=== PATIENT | male | born 1950 | race Caucasian/White ===

== ENCOUNTER 2016-07-03 16:20 | Emergency (ER) | payer OTHER ==
[2016-07-03 16:30] VITALS: TEMP 97.9
[2016-07-03] MEDS ORDERED: NS 1,000 ML IV ONE (16:49)
[2016-07-03] MEDS ORDERED: ONDANSETRON 4 MG/2 ML VIAL ONE (16:49)
[2016-07-03] MEDS ORDERED: ONDANSETRON 4 MG/2 ML VIAL IVP ONE (16:49)
--- NOTE | 2016-07-03 17:00 | EDPHY ---
General Narrative: CHIEF COMPLAINT: Abdominal pain, back pain HISTORY OF PRESENT ILLNESS: Three days history of left lower back pain and abdominal pain. This was fairly sudden onset. Constant duration. Mild to moderate 1st now moderate to severe. No position of comfort. He does have an extensive tobacco history with multilevel fractures requiring surgical intervention last August and [facility]. Since then he has had some paresthesia of the saddle and lower extremities that time. This is unchanged at this time. He also has no new trauma. He has no midline tenderness of the back. It does not radiate to the legs. No saddle anesthesia. No incontinence of bowel or bladder. he has abdominal pain feels like he is constipated bloated. Small bowel movement this morning. He does feel like he is very distended hour. No fever. No chest pain or shortness of breath. No urinary complaints. No other associated complaints or modifying factors. He does not take any opiates for his pain. He has been taking Tylenol over the past few days with minimal improvement. PREVIOUS ABDOMINAL SURGERIES/DIAGNOSES: None REVIEW OF SYSTEMS: Ten systems reviewed and are negative unless otherwise noted in the HPI EXAMINATION: General Appearance: Alert, no distress Head: normocephalic, atraumatic Eyes: Pupils equal and round, no conjunctival pallor or injection ENT, Mouth: Mucous membranes moist. Uvula midline. No erythema or edema. Neck: Normal inspection, supple, non-tender Respiratory: Lungs are clear to auscultation . No wheezing, rhonchi or crackles. Cardiovascular: Regular rate and rhythm . No murmur. Pulses intact distally. Gastrointestinal: Abdomen is soft . Tender in all quadrants, left lower quadrant more so than the others. Bowel sounds are present but diminished in all 4 quadrants. There is mild tympany. No rigidity. Mild guarding in all quadrants. No CVA Tenderness Back: tenderness to the soft tissue of the lumbar region on the left. There is no midline tenderness at any level. There are well-healed thoracolumbar surgical incisions. There is no crepitus, step-off or deformity. Range of motion is limited due to pain. Neurological: A&O, nonfocal, normal gait . Strength is symmetric in all limbs. Patellar reflexes are symmetric. Sensory intact. Skin: Warm and dry, no rash Extremities: Nontender, no pedal edema Psychiatric: Mood and affect normal DIFFERENTIAL DIAGNOSES: Including but not limited to diverticulitis, small-bowel obstruction, colitis, enteritis, acute low back pain, chronic low back pain MDM: 4:50 p.m. abdominal and back pain with significant tenderness to palpation on the abdomen. Bowel sounds are present but diminished in all quadrants. Left lower quadrant is by far the more tender of the regions. I have ordered CT scan of the abdomen pelvis to visualize both areas. He has no midline tenderness of the back. No symptoms or history that would suggest cauda equina or acute cord compression. 6:38 p.m. notified by radiologist Dr. Patterson of the CT scan findings. No obstruction. he does note some small areas of fluid-filled small intestine. I have re- evaluated the patient. I have informed him of the findings and of his laboratory findings. There is a mild leukocytosis but no other focal findings. I have re-examined the patient. He is feeling somewhat better but not resolved. I recommended and offered admission to the hospital for pain control and further workup for this possible enteritis. He has declined. He would like to be discharged home. I do feel he is stable for discharge home but that he would need to return to the emergency department tomorrow for re-evaluation if he does not improved. He would also need to return should symptoms worsen. We discussed this in detail and he and his spouse are comfortable with assuming these risks being discharged home. Was discharged home with pain medication and strict return to ER precautions. Additionally if he cannot see his primary care physician tomorrow he is to return here. ED Precautions: Worsening pain. Fever. Bloody stools. Bloody emesis. Constipation or diarrhea. SUPERVISION: This patient was independently evaluated without the aide of supervising physician. - History Smoking Status: Never smoked - Objective Vital Signs: Initial Vital Signs Temperature (C) 97.9 F 07/03/16 16:26 Heart Rate 84 07/03/16 16:26 Respiratory Rate 20 07/03/16 16:26 Blood Pressure 134/88 H 07/03/16 16:26 O2 Sat (%) 97 07/03/16 16:26 O2 Delivery Mode Room Air Allergies/Adverse Reactions: No Known Allergies Allergy (Verified 07/07/12 15:01) Home Medications: Medication Instructions Recorded Simvastatin 10 mg PO 07/07/12 Ondansetron Odt [Zofran Odt 4 mg 4 mg PO Q6 PRN #12 tab 07/03/16 (*)] oxyCODONE HCL/ACETAMINOPHEN 1 each PO Q4-6PRN PRN #15 tablet 07/03/16 [Percocet 5-325 mg Tablet] Laboratory Results: Laboratory Results 07/03/16 17:00 07/03/16 07/03/16 07/03/16 17:28 17:09 17:00 WBC RBC Hgb POC Hgb 11.9 gm/dL L gm/dL (14.5-17.3) Hct POC Hct 35 % L % (42.8-50.6) MCV MCH MCHC RDW Plt Count MPV Neut % (Auto) Lymph % (Auto) [place] % (Auto) Eos % (Auto) Baso % (Auto) Nucleat RBC Rel Count Absolute Neuts (auto) Absolute Lymphs (auto) Absolute Monos (auto) Absolute Eos (auto) Absolute Basos (auto) Absolute Nucleated RBC Immature Gran % Immature Gran # PT Pending INR Pending APTT Pending POC Sodium 141 mEq/L mEq/L (134-144) POC Potassium 3.9 mEq/L mEq/L (3.3-5.0) POC Chloride 108 mEq/L mEq/L (96-108) POC BUN 22 mg/dL mg/dL (7-23) POC Creatinine 0.9 mg/dL mg/dL (0.8-1.5) POC Glucose 94 mg/dL mg/dL (70-100) Total Bilirubin 0.9 mg/dL mg/dL (0.1-1.4) Conjugated Bilirubin 0.4 mg/dL mg/dL (0.0-0.5) Unconjugated Bilirubin 0.5 mg/dL mg/dL (0.0-1.1) AST 22 IU/L IU/L (17-59) ALT 30 IU/L IU/L (21-72) Alkaline Phosphatase 94 IU/L IU/L (38-126) Total Protein 8.3 g/dL H g/dL (6.3-8.2) Albumin 4.7 g/dL g/dL (3.5-5.0) Lipase 83.0 IU/L IU/L (23-300) 07/03/16 17:00 WBC 10.31 10^3/uL H 10^3/uL (3.80-9.50) RBC 4.61 10^6/uL 10^6/uL (4.40-6.38) Hgb 13.3 g/dL L g/dL (13.7-17.5) POC Hgb Hct 39.9 % L % (40.0-51.0) POC Hct MCV 86.6 fL fL (81.5-99.8) MCH 28.9 pg pg (27.9-34.1) MCHC 33.3 g/dL g/dL (32.4-36.7) RDW 14.0 % % (11.5-15.2) Plt Count 357 10^3/uL 10^3/uL (150-400) MPV 9.3 fL fL (8.7-11.7) Neut % (Auto) 74.3 % H % (39.3-74.2) Lymph % (Auto) 17.8 % % (15.0-45.0) [place] % (Auto) 6.3 % % (4.5-13.0) Eos % (Auto) 0.7 % % (0.6-7.6) Baso % (Auto) 0.4 % % (0.3-1.7) Nucleat RBC Rel Count 0.0 % % (0.0-0.2) Absolute Neuts (auto) 7.66 10^3/uL H 10^3/uL (1.70-6.50) Absolute Lymphs (auto) 1.84 10^3/uL 10^3/uL (1.00-3.00) Absolute Monos (auto) 0.65 10^3/uL 10^3/uL (0.30-0.80) Absolute Eos (auto) 0.07 10^3/uL 10^3/uL (0.03-0.40) Absolute Basos (auto) 0.04 10^3/uL 10^3/uL (0.02-0.10) Absolute Nucleated RBC 0.00 10^3/uL 10^3/uL (0-0.01) Immature Gran % 0.5 % % (0.0-1.1) Immature Gran # 0.05 10^3/uL 10^3/uL (0.00-0.10) PT INR APTT POC Sodium POC Potassium POC Chloride POC BUN POC Creatinine POC Glucose Total Bilirubin Conjugated Bilirubin Unconjugated Bilirubin AST ALT Alkaline Phosphatase Total Protein Albumin Lipase Medications Given: Discontinued Medications Sodium Chloride (Ns) 1,000 mls @ 0 mls/hr IV ONCE ONE PRN Reason: Wide Open Stop: 07/03/16 16:50 Last Admin: 07/03/16 17:00 Dose: 1,000 mls Morphine Sulfate (Morphine) 6 mg IVP EDNOW ONE Stop: 07/03/16 16:50 Last Admin: 07/03/16 17:00 Dose: 6 mg Ondansetron HCl (Zofran) 4 mg IVP EDNOW ONE Stop: 07/03/16 16:50 Last Admin: 07/03/16 17:00 Dose: 4 mg Point of Care Test Results: 07/03/16 17:28 POC Sodium 141 POC Potassium 3.9 POC Chloride 108 POC BUN 22 POC Creatinine 0.9 POC Glucose 94 Departure - Departure Disposition: Home, Routine, Self-Care Clinical Impression: Enteritis Abdominal pain Qualifiers: Abdominal location: left lower quadrant Qualified Code(s): R10.32 - Left lower quadrant pain Lumbar back pain Qualifiers: Chronicity: acute Back pain laterality: left Sciatica presence: without sciatica Qualified Code(s): M54.5 - Low back pain Condition: Good Instructions: Acute Abdominal Pain (ED), Acute Low Back Pain (ED) Additional Instructions: Pain medications as discussed. Return to the ER tomorrow if no improvement. Return to ER if you change your mind and would like to be admitted in the interim. Return immediately should her pain worsen, you have any vomiting or fever. Referrals: NONE *PRIMARY CARE P,. [Primary Care Provider] - As per Instructions Kenia Colbert MD [Medical Doctor] - As per Instructions Prescriptions: Ondansetron Odt [Zofran Odt 4 mg (*)] 4 mg PO Q6 PRN #12 tab PRN Reason: Nausea/Vomiting, Use 1st oxyCODONE HCL/ACETAMINOPHEN [Percocet 5-325 mg Tablet] 1 each PO Q4-6PRN PRN # 15 tablet PRN Reason: Pain, Breakthrough
[2016-07-03 17:15] LABS: % IMMATURE GRANULYOCYTES 0.5 % (0.0-1.1); ABSOLUTE IMMATURE GRANULOCYTES 0.05 10^3/uL (0.00-0.10); ADD DIFF? NO; ADD MORPH? NO; ADD SCAN? NO; ATYPICAL LYMPHOCYTE FLAG 10 (0-99); FRAGMENT RBC FLAG 0 (0-99); HEMATOCRIT 39.9 % (40.0-51.0); HEMOGLOBIN 13.3 g/dL (13.7-17.5); LEFT SHIFT FLG 0 (0-99); LIPEMIA HEMOLYSIS FLAG 80 (0-99); MEAN CELL HEMOGLOBIN 28.9 pg (27.9-34.1); MEAN CELL HEMOGLOBIN CONCENTR. 33.3 g/dL (32.4-36.7); MEAN CELL VOLUME 86.6 fL (81.5-99.8); MEAN PLATELET VOLUME 9.3 fL (8.7-11.7); PLATELET CLUMPS FLAG 0 (0-99); PLATELET COUNT 357 10^3/uL (150-400); RED BLOOD CELL COUNT 4.61 10^6/uL (4.40-6.38)
[2016-07-03 17:23] LABS: ALBUMIN 4.7 g/dL (3.5-5.0); BILIRUBIN,TOTAL 0.9 mg/dL (0.1-1.4); BILIRUBIN-CONJUGATED 0.4 mg/dL (0.0-0.5); BILIRUBIN-UNCONJUGATED 0.5 mg/dL (0.0-1.1); TOTAL PROTEIN 8.3 g/dL (6.3-8.2)
[2016-07-03 18:36] LABS: INR 0.98 (0.83-1.16); PROTIME(PATIENT) 12.9 SEC (12.0-15.0)
[2016-07-03 18:37] LABS: APTT 30.3 SEC (23.0-38.0)
[2016-07-03] MEDS ORDERED: OXYCODONE/APAP 5/325 TAB PO ONE (18:44)
[2016-07-03] MEDS ORDERED: OXYCODONE/APAP 5/325 TAB ONE (18:44)
[2016-07-03 18:55] VITALS: BP 135/84; PULSE 85; RESP 18; O2SAT 98
== END 2016-07-03 19:09 | disposition home or self-care (01) ==
DX: K52.9 Noninfective gastroenteritis and colitis, unspecified (principal); M54.5 Low back pain
CPT/HCPCS: 82947-QW; 96374; J2405

== ENCOUNTER 2016-08-24 11:04 | Emergency (ER) | payer OTHER ==
--- NOTE | 2016-08-24 11:35 | EDPHY ---
H & P Time Seen by Provider: 08/24/16 11:18 HPI/ROS: CHIEF COMPLAINT: Bilateral flank pain HISTORY OF PRESENT ILLNESS: This is a 65-year-old male presenting to the emergency department complaining of bilateral flank pain onset past few days. Patient also reports some urinary frequency but no dysuria. Patient states he does have a history of back surgery August of 2015 surgery was at [facility] for broken back thoracic and lumbar area. Patient denies any injury or new trauma. REVIEW OF SYSTEMS: Constitutional: No fever. chills. Eyes: No discharge. ENT: No sore throat. Cardiovascular: No chest pain, no palpitations. Respiratory: No cough, no shortness of breath. Gastrointestinal: No abdominal pain, no vomiting. Genitourinary: No hematuria. Urinary frequency Musculoskeletal: Bilateral flank pain. Chronic back pain due to surgery in August of 2015 Skin: No rashes. Neurological: No headache. Smoking Status: Never smoked Physical Exam: General Appearance: Alert, no distress. Eyes: Pupils equal and round no pallor or injection. ENT, Mouth: Mucous membranes moist. Respiratory: There are no retractions, lungs are clear to auscultation. Cardiovascular: Regular rate and rhythm. Gastrointestinal: Abdomen is soft and nontender, no masses, bowel sounds normal. Neurological: No focal deficits. Ambulatory with steady gait Skin: Warm and dry, no rashes. Musculoskeletal: Neck is supple nontender. Bilateral CVA tenderness on palpation. T-L-S vertebral spine nontender on palpation full range of motion Extremities: symmetrical, full range of motion. Psychiatric: Patient is oriented X 3, there is no agitation. Constitutional: Initial Vital Signs Temperature (C) 36.4 C 08/24/16 11:09 Heart Rate 84 08/24/16 11:09 Respiratory Rate 18 08/24/16 11:09 Blood Pressure 135/83 H 08/24/16 11:09 O2 Sat (%) 98 08/24/16 11:09 O2 Delivery Mode Room Air Allergies/Adverse Reactions: No Known Allergies Allergy (Verified 08/24/16 11:08) Home Medications: Medication Instructions Recorded Simvastatin 10 mg PO 07/07/12 Cyclobenzaprine [Flexeril 10 MG 10 mg PO BID PRN #20 tab 08/24/16 (*)] Htn Med 08/24/16 Medical Decision Making - Diagnostics Imaging Results: Imaging Impressions Abdomen/Pelvis Ultrasound 08/24/16 11:35 Impression: 1. No hydronephrosis. 2. Trace postvoid residual. Findings discussed with Abigail Dodd NP on 08/24/2016 at 1224 hours. ED Course/Re-evaluation: Discussed the plan of care: UA, CBC, BMP, ultrasound of kidneys 1220: With Dr. Dave ultrasound negative for any acute findings 1230: Discussed all results with patient. Discussed discharge instructions. Discharge home---> stable Differential Diagnosis: Other differential diagnosis considered but not limited to renal stone, hydronephrosis and UTI - Data Points Laboratory Results: Laboratory Results 08/24/16 11:35 08/24/16 11:35 08/24/16 08/24/16 11:35 11:35 WBC 9.01 10^3/uL 10^3/uL (3.80-9.50) RBC 4.42 10^6/uL 10^6/uL (4.40-6.38) Hgb 12.9 g/dL L g/dL (13.7-17.5) Hct 38.9 % L % (40.0-51.0) MCV 88.0 fL fL (81.5-99.8) MCH 29.2 pg pg (27.9-34.1) MCHC 33.2 g/dL g/dL (32.4-36.7) RDW 12.9 % % (11.5-15.2) Plt Count 330 10^3/uL 10^3/uL (150-400) MPV 9.0 fL fL (8.7-11.7) Neut % (Auto) 65.8 % % (39.3-74.2) Lymph % (Auto) 22.0 % % (15.0-45.0) [place] % (Auto) 8.2 % % (4.5-13.0) Eos % (Auto) 3.2 % % (0.6-7.6) Baso % (Auto) 0.6 % % (0.3-1.7) Nucleat RBC Rel Count 0.0 % % (0.0-0.2) Absolute Neuts (auto) 5.93 10^3/uL 10^3/uL (1.70-6.50) Absolute Lymphs (auto) 1.98 10^3/uL 10^3/uL (1.00-3.00) Absolute Monos (auto) 0.74 10^3/uL 10^3/uL (0.30-0.80) Absolute Eos (auto) 0.29 10^3/uL 10^3/uL (0.03-0.40) Absolute Basos (auto) 0.05 10^3/uL 10^3/uL (0.02-0.10) Absolute Nucleated RBC 0.00 10^3/uL 10^3/uL (0-0.01) Immature Gran % 0.2 % % (0.0-1.1) Immature Gran # 0.02 10^3/uL 10^3/uL (0.00-0.10) Sodium 141 mEq/L mEq/L (134-144) Potassium 4.4 mEq/L mEq/L (3.5-5.2) Chloride 104 mEq/L mEq/L (97-110) Carbon Dioxide 24 mEq/l mEq/l (22-31) Anion Gap 13 mEq/L mEq/L (8-16) BUN 21 mg/dL mg/dL (7-23) Creatinine 1.0 mg/dL mg/dL (0.7-1.3) Estimated GFR > 60 Glucose 99 mg/dL mg/dL (70-100) Calcium 9.6 mg/dL mg/dL (8.5-10.4) Departure - Departure Disposition: Home, Routine, Self-Care Clinical Impression: Lower back pain Qualifiers: Chronicity: acute Back pain laterality: bilateral Sciatica presence: without sciatica Qualified Code(s): M54.5 - Low back pain Condition: Good Instructions: Lumbar Radiculopathy (ED), Lower Back Exercises (ED) Additional Instructions: Discussed discharge instructions 1. Decrease strenuous activity 2. Heating pad hot tub soaks may be beneficial 3. The ibuprofen 400-600 mg every 6-8 hours, you can also take this with Flexeril Referrals: NONE *PRIMARY CARE P,. [Primary Care Provider] - As per Instructions [facility],. [Clinic] - As per Instructions Prescriptions: Cyclobenzaprine [Flexeril 10 MG (*)] 10 mg PO BID PRN #20 tab PRN Reason: Spasms
[2016-08-24 11:43] LABS: HEMATOCRIT 38.9 % (40.0-51.0); HEMOGLOBIN 12.9 g/dL (13.7-17.5); RED BLOOD CELL COUNT 4.42 10^6/uL (4.40-6.38)
[2016-08-24 11:44] LABS: % IMMATURE GRANULYOCYTES 0.2 % (0.0-1.1); ABSOLUTE IMMATURE GRANULOCYTES 0.02 10^3/uL (0.00-0.10); ADD DIFF? NO; ADD MORPH? NO; ADD SCAN? NO; ATYPICAL LYMPHOCYTE FLAG 20 (0-99); FRAGMENT RBC FLAG 0 (0-99); LEFT SHIFT FLG 0 (0-99); LIPEMIA HEMOLYSIS FLAG 80 (0-99); MEAN CELL HEMOGLOBIN 29.2 pg (27.9-34.1); MEAN CELL HEMOGLOBIN CONCENTR. 33.2 g/dL (32.4-36.7); PLATELET CLUMPS FLAG 0 (0-99); PLATELET COUNT 330 10^3/uL (150-400); RED CELL DISTRIBUTION WIDTH 12.9 % (11.5-15.2)
[2016-08-24 12:06] LABS: ANION GAP 13 mEq/L (8-16); CALCIUM 9.6 mg/dL (8.5-10.4); CARBON DIOXIDE 24 mEq/l (22-31); CHLORIDE 104 mEq/L (97-110); GLOMERULAR FILTRATION RATE > 60; GLUCOSE 99 mg/dL (70-100); POTASSIUM 4.4 mEq/L (3.5-5.2); SODIUM 141 mEq/L (134-144)
[2016-08-24 13:41] VITALS: BP 133/80; PULSE 74; RESP 14; TEMP 98.2; O2SAT 97
== END 2016-08-24 13:40 | disposition home or self-care (01) ==
DX: M54.5 Low back pain (principal)